=== PATIENT | female | born 1985 | race Two or more races ===

== ENCOUNTER → 2021-12-19 | Emergency (ER) | payer OTHER | END | disposition home or self-care (01) | LOC: ER 16:45 | DX: M94.0 Chondrocostal junction syndrome [Tietze] (principal) ==

== ENCOUNTER 2022-01-15 13:33 | Emergency (ER) | payer OTHER ==
[~2022-01-15] VITALS: Ht 154.9 cm; Wt 62.6 kg
[2022-01-15] MEDS ORDERED: DULERA 200 MCG/13 GM (13:50)
[2022-01-15] MEDS ORDERED: MEDROLPACK PO (19:54)
[2022-01-15] MEDS ORDERED: ORPHENADRINE C100 MG PO (19:54)
== END 2022-01-15 20:02 | disposition home or self-care (01) ==
LOC: ER 13:33 → EDBD 14:37 → ER 20:02
DX: R07.89 Other chest pain (principal); Z88.6 Allergy status to analgesic agent